=== PATIENT | male | born 1980 | race Caucasian/White ===

== ENCOUNTER 2020-02-25 21:25 | Emergency (ER) | payer MEDICARE ==
[~2020-02-25] VITALS: Ht 167.6 cm; Wt 54.5 kg
[2020-02-25] MEDS ORDERED: propofol 10mg/ml 20ml vial IV ONE (22:10)
--- NOTE | 2020-02-25 22:51 | NUR ---
Radiology at bedside for post reduction x-rays.
[2020-02-25 23:23] VITALS: BP 116/78
== END 2020-02-25 23:26 | disposition home or self-care (01) ==
LOC: ER 21:26
DX: S43.004A Unspecified dislocation of right shoulder joint, initial encounter (principal); X58.XXXA Exposure to other specified factors, initial encounter; Y93.89 Activity, other specified; Y92.89 Other specified places as the place of occurrence of the external cause; Y99.8 Other external cause status
CPT/HCPCS: 23650; 73020; 73030; 94760; 99152; 99285

== ENCOUNTER 2023-02-03 19:32 | Emergency (ER) | payer MEDICARE, MEDICAID ==
[~2023-02-03] VITALS: Ht 167.6 cm; Wt 54.5 kg
[2023-02-03] MEDS ORDERED: acetaminophen 325mg tablet PO STA (19:56)
[2023-02-03] MEDS ORDERED: normal saline 1000ML IV soln IVB ONE (20:05)
[2023-02-03] MEDS ORDERED: piperacillin/tazo 3.375gm/50ml 50 ML IV ONE (20:10)
[2023-02-03] MEDS ORDERED: ondansetron/PF 4mg/2ml inj IV ONE (20:15)
[2023-02-03] MEDS ORDERED: morphine 4 MG/ML inj SYRINge IV ONE (20:15)
[2023-02-03 20:33] LABS: EOSINOPHILS % (AUTO) 0 % (0-6); HEMOGLOBIN 13.3 g/dl (14.0-17.9); LYMPHOCYTES # (AUTO) 0.3 X10'3 (1.1-4.8)
[2023-02-03 20:35] LABS: BASOPHILS % (AUTO) 0.1 % (0-1); HEMATOCRIT 38.6 % (42.0-52.0); LYMPHOCYTES % (AUTO) 2.1 % (21-51); MEAN CORPUSCULAR HEMOGLOBIN 32.8 PG (27.0-31.0); MEAN CORPUSCULAR HGB CONC 34.5 g/dL (33.0-36.5); MEAN PLATELET VOLUME 7.9 FL (7.4-10.4); MONOCYTES % (AUTO) 6.2 % (2-12); NEUTROPHILS # (AUTO) 14.3 X10'3 (1.8-7.7); NEUTROPHILS % (AUTO) 91.6 % (42-75); PLATELET COUNT 125 X10'3 (140-440); RED BLOOD COUNT 4.06 X10'6 (4.70-6.10); RED CELL DISTRIBUTION WIDTH 12.9 % (11.5-14.5); WHITE BLOOD COUNT 15.7 X10'3 (4.5-11.0)
[2023-02-03 20:47] LABS: ALANINE AMINOTRANSFERASE 21 U/L (12-78); ALBUMIN 3.8 G/DL (3.4-5.0); ALBUMIN/GLOBULIN RATIO 1.2 (1.1-1.5); ALKALINE PHOSPHATASE 49 IU/L (46-116); ANION GAP 15 (8-16); ASPARTATE AMINO TRANSFERASE 15 U/L (10-37); BILIRUBIN,TOTAL 0.9 MG/DL (0.1-1.0); BLOOD UREA NITROGEN 18 MG/DL (7-18); BUN/CREATININE RATIO 14.2 (10.0-20.0); CHLORIDE 99 MMOL/L (99-107); CREATININE 1.27 MG/DL (0.60-1.10); GLUCOSE 125 MG/DL (70-104); LIPASE 923 U/L (73-393); POTASSIUM 3.6 MMOL/L (3.5-5.1); SODIUM 135 MMOL/L (135-145); TOTAL CARBON DIOXIDE 21.4 MMOL/L (24-32); TOTAL PROTEIN 7.1 G/DL (6.4-8.2); eCRCL 59 ML/MIN; eGFR 62 ML/MIN
[2023-02-03 21:47] LABS: BILIRUBIN,URINE NEGATIVE (Neg); CLARITY,URINE CLOUDY (Clear); GLUCOSE, URINE NEGATIVE (Neg); KETONES,URINE >=80 mg/dl (Neg); LEUKOCYTE ESTERASE ,URINE SMALL (Neg); NITRITES, URINE POSITIVE (Neg); OCCULT BLOOD,URINE MODERATE (Neg); PH,URINE 6.5 (4.8-8.0); PROTEIN,URINE 30 mg/dl (Neg)
[2023-02-03 21:58] LABS: COLOR,URINE DARK YELLOW (Yellow); UA COLLECTION TYPE URINAL
[2023-02-03] MEDS ORDERED: CEPH-585 PO (22:02)
[2023-02-03 22:03] LABS: WBC,URINE TNTC /HPF (0-4)
[2023-02-03 22:04] LABS: BACTERIA,URINE 4+ /HPF (Neg); SQUAMOUS EPITHELIAL CELL,UR FEW /LPF (FEW)
[2023-02-03 22:32] VITALS: BP 105/64; PULSE 84; RESP 16; TEMP 98.2; O2SAT 100
[2023-02-05] MEDS ORDERED: ONDA4TAB12 PO (18:45)
== END 2023-02-03 22:33 | disposition home or self-care (01) ==
LOC: ER 19:33
DX: R50.9 Fever, unspecified (principal); R10.31 Right lower quadrant pain; Z79.2 Long term (current) use of antibiotics
CPT/HCPCS: 36415; 74176; 80053; 81001; 83605; 83690; 84145; 85025; 87040; 87088; 96365; 96375; 99285; J2270; J2405; J2543; J7030